=== PATIENT | female | born 1995 | race African-American/Black ===

== ENCOUNTER 2019-12-24 17:41 | Inpatient (IN) ==
[2019-12-24 19:25] LABS: Cocaine Ur Negative (NEGATIVE); Urine Barbiturate Negative (NEGATIVE); Urine Benzodiazepines Negative (NEGATIVE); Urine Opiates Negative (NEGATIVE); Urine PCP Negative (NEGATIVE); Urine THC Negative (NEGATIVE)
[2019-12-24] MEDS ORDERED: RINGER'S SOLUTION,LACTATED 1,000 ML IV PRN (20:45)
[2019-12-24] MEDS ORDERED: ONDANSETRON 4 MG TAB.RAPDIS PO PRN (20:45)
[2019-12-24] MEDS ORDERED: LIDOCAINE HCL 50 ML VIAL PERI PRN (20:45)
[2019-12-24] MEDS ORDERED: OXYTOCIN/DEXTROSE 5%-WATER 30 UNITS/500 ML BAG IV ONE (20:45)
[2019-12-24] MEDS ORDERED: RINGER'S SOLUTION,LACTATED 1,000 ML IV ONE (20:45)
[2019-12-24] MEDS ORDERED: DEXTROSE 5%-LACTATED RINGERS 1,000 ML IV PRN (20:45)
[2019-12-25] MEDS ORDERED: ONDANSETRON HCL/PF 2 MG/ML VIAL IV PRN (01:32)
[2019-12-25] MEDS ORDERED: BUPIVACAINE HCL/0.9 % NACL/PF 250 ML EP PRN (01:32)
[2019-12-25] MEDS ORDERED: NALOXONE HCL 1 MG/1 ML SYRG IV PRN (01:32)
[2019-12-25] MEDS ORDERED: fentaNYL CITRATE/PF 50 MCG/ML AMPUL IT SCH (01:45)
--- NOTE | 2019-12-25 03:21 | ANES ---
Anesthesia Pre Procedure Eval Vitals/Labs: Last Vital Signs Temp 37.1 C 12/24/19 21:00 Pulse 101 H 12/24/19 21:00 Resp 18 12/24/19 21:00 BP 131/79 12/24/19 21:00 Pulse Ox 98 12/24/19 21:00 HOME MEDICATIONS prenat.vits,kathrine,sly-rqmd-[id number] 1 tab PO DAILY 05/19/19 [Last Taken 12/24/19] ferrous sulfate 325 mg (65 mg iron) tablet 325 mg PO BID #30 tab 09/27/19 [Last Taken 12/24/19] aspirin 81 mg tablet,delayed release 81 mg PO DAILY 11/30/19 [Last Taken 12/24/19] valacyclovir 1 gram tablet 1,000 mg PO DAILY #30 tab 11/30/19 [Last Taken 12/24/19] Allergies/Adverse Reactions: Allergies Allergy/AdvReac Type Severity Reaction Status Date / Time No Known Allergies Allergy Verified 12/24/19 17:56 - Planned Procedure Planned Procedure: labor Medication List Reviewed:: Yes Allergies Verified: Yes Medical History (Last Reviewed 12/25/19 @ 03:20 by Ronnell Cowan CRNA) HSV antigen DIF positive (Chronic) History of cervical dysplasia (Chronic) LGSIL 2016, Nml pap 2018 Major depressive disorder, recurrent episode, in partial remission with anxious distress (Acute) Anemia Onset Date: ~04/2016 in high school, with pregnancies HSV-2 (herpes simplex virus 2) infection Onset Date: 05/12/18 Allergic rhinitis Onset Date: Unknown Abnormal Pap smear of cervix Onset Date: 05/12/17 LSIL +HPV Depression Onset Date: Unknown in high school GERD (gastroesophageal reflux disease) Onset Date: Unknown as a child Major depressive disorder, recurrent episode, moderate with anxious distress (Resolved) Mononucleosis Onset Date: ~2011 Pre-eclampsia Onset Date: 11/2015 Premature labor Onset Date: ~10/2015 @ 33 weeks Scoliosis Onset Date: 12/26/09 Sinusitis Onset Date: 08/08/09 Surgical History (Last Reviewed 12/25/19 @ 03:20 by Ronnell Cowan CRNA) [place] teeth extracted Onset Date: ~2011 Family History (Last Reviewed 12/25/19 @ 03:20 by Ronnell Cowan CRNA) Brother Seizures Epilepsy Father Diabetes at age 42 Grandmother Dementia Diabetes Anxiety maternal Depression Mother Arthritis Anxiety Depression PTSD (post-traumatic stress disorder) Borderline personality disorder Cervical cancer Stomach ulcer Sjoegren syndrome Fibromyalgia Chronic fatigue syndrome Neuropathy Migraines Raynauds syndrome Sister Seizures PTSD (post-traumatic stress disorder) Anxiety Depression Bipolar disorder Alcohol abuse - Family Anesthesia History Family History:: no untoward family reactions to anesthesia, no familial bleeding tendencies, no family history of clotting disorders, no family history of premature - Airway/Neck/Teeth Within Normal Limits:: Yes Teeth Condition: intact Neck Exam: full range of motion Mallampatti Score: 2 Thyromental (T-M) distance: > 6 cm Mandibulo Hyoid distance: > 3 cm - Respiratory Respiratory Physical: lungs clear Sleep Apnea currently treated: No Sleep Apnea by current assessment: No - Cardiovascular Tolerate Activity: Fair Heart Sounds: S1 & S2 - Gastrointestinal NPO since: today - Anesthesia Assessment and Plan ASA Class: PS, II, E Anesthesia Type Plan: Epidural - CSE for labor analgesia
--- NOTE | 2019-12-25 03:47 | ANES ---
Post Anesthesia Discharge - Transfer of Care Transfer of Care handoff given to nurse: Yes - Discharge from PACU Discharge from PACU when meets criteria: Yes - Comfortable post CSE
--- NOTE | 2019-12-25 03:50 | ANES ---
Anesthesia Procedure Note Procedure Note: ANESTHESIA PROCEDURE NOTE Date of Procedure: [12/25/2019 Time of procedure: 3:20 AM. Performed by: MARGIE Napoles CRNA, MSN Field Associate: Nella Finn RN. Preprocedure diagnosis: Active labor, labor pain. Post procedure diagnosis: Same. Procedure:Epidural for labor analgesia 3 4. Indications: Labor pain. Findings: See below. Details of the procedure: The patient was placed on the side of the bed in sitting positionand prepped with DuraPrep then draped in a sterile fashion. An obvious right scoliosis was noted on palpation again the landmarks a bit difficult however the patient was quite cooperative. Lidocaine 1% was infiltrated to the skin and subcutaneous tissues at the level of the L3-4 interspace. An 18-gauge Touhy needle was used to approach the epidural space with loss of resistance technique. Once loss of resistance was achieved a 27- gauge spinal needle was passed through the epidural needle and CSF was contacted. After CSF returned, 20 mcg of fentanyl was injected in the spinal needle was removed the epidural catheter was then threaded approximately 4 cm in the epidural needle was removed. The catheter was taped in place and after careful aspiration 3 mL of 1.5% lidocaine with 1-200,000 epinephrine was injected without change in maternal heart rate or sensorium. . EBL: Minimal. Fluids: N/A. Specimen: N/A. Post procedure condition: The patient tolerated the procedure well with good relief. No complications were noted. Thank you for this consultation. Ronnell Cowan CRNA, ARNP, MSN
--- NOTE | 2019-12-25 03:56 | ANES ---
Post Anesthesia Assessment - Vital Signs Vitals: Last Vital Signs Temp 37.1 C 12/24/19 21:00 Pulse 101 H 12/24/19 21:00 Resp 18 12/24/19 21:00 BP 131/79 12/24/19 21:00 Pulse Ox 98 12/24/19 21:00 Airway Patency: Normal - Mental Status Level Of Consciousness: Awake, Alert, Appropriate - Pain Level Pain Score: 0 - N/V Assessment Nausea/Vomiting Presence: None Dehydration:: No
--- NOTE | 2019-12-25 06:44 | HP ---
Chief Complaint - Chief Complaint Date of Service: 12/25/19 Time of Service: 06:28 Chief Complaint: painful contractions History of Present Illness: 24 yo admitted on 12/24/19 at 39 0/7 weeks for labor. This complicated by anemia, HSV carrier, h/o depression, h/o labor, and h/o preeclampsia. Rh positive Rubella immune GBS negative Medical History (Last Reviewed 12/25/19 @ 06:32 by Dominick Seals DO) HSV antigen DIF positive (Chronic) History of cervical dysplasia (Chronic) LGSIL 2016, Nml pap 2018 Major depressive disorder, recurrent episode, in partial remission with anxious distress (Acute) Anemia Onset Date: ~04/2016 in high school, with pregnancies HSV-2 (herpes simplex virus 2) infection Onset Date: 05/12/18 Allergic rhinitis Onset Date: Unknown Abnormal Pap smear of cervix Onset Date: 05/12/17 LSIL +HPV Depression Onset Date: Unknown in high school GERD (gastroesophageal reflux disease) Onset Date: Unknown as a child Major depressive disorder, recurrent episode, moderate with anxious distress (Resolved) Mononucleosis Onset Date: ~2011 Pre-eclampsia Onset Date: 11/2015 Premature labor Onset Date: ~10/2015 @ 33 weeks Scoliosis Onset Date: 12/26/09 Sinusitis Onset Date: 08/08/09 Surgical History: Surgical History (Last Reviewed 12/25/19 @ 06:32 by Dominick Seals DO) [place] teeth extracted Onset Date: ~2011 Family History: Family History (Last Reviewed 12/25/19 @ 06:32 by Dominick Seals DO) Brother Seizures Epilepsy Father Diabetes at age 42 Grandmother Dementia Diabetes Anxiety maternal Depression Mother Arthritis Anxiety Depression PTSD (post-traumatic stress disorder) Borderline personality disorder Cervical cancer Stomach ulcer Sjoegren syndrome Fibromyalgia Chronic fatigue syndrome Neuropathy Migraines Raynauds syndrome Sister Seizures PTSD (post-traumatic stress disorder) Anxiety Depression Bipolar disorder Alcohol abuse Social History: (Last Reviewed 12/25/19 @ 06:33 by Dominick Seals DO) Social History: Marital status: Single current occupational status: employed current occupation: hotel maintenance technician Highest education level completed: high school graduate Service: No Tobacco: how long ago did patient quit smoking: what positive UPT 04/2019 Alcohol: alcohol intake: current alcohol intake frequency: a few times a week details: none with Substance Use: substance use type: does not use Dietary Habits: caffeine: Yes caffeine comment: 1-week Exercise: Physical activity type: none Review Of Systems (GEN) - Review of Systems Generalized/Overall Review: Present: No Symptoms Reported EENTM: Present: No Symptoms Reported Respiratory: Present: No Symptoms Reported Cardiac: Present: No Symptoms Reported Abdominal: Present: No Symptoms Reported Genitourinary: Present: No Symptoms Reported Musculoskeletal: Present: No Symptoms Reported Neurological: Present: No Symptoms Reported Skin: Present: No Symptoms Reported Endocrine: Present: No Symptoms Reported Immunizations: IMMUNIZATION HX Immunizations Up to Date Yes History of Influenza Vaccine No Hx Pneumococcal Vaccination No Allergies/Adverse Reactions: Allergies Allergy/AdvReac Type Severity Reaction Status Date / Time No Known Allergies Allergy Verified 12/24/19 17:56 Home Medications: HOME MEDICATIONS prenat.vits,kathrine,egs-gtrl-jorvg 1 tab PO DAILY 05/19/19 [Last Taken 12/24/19] ferrous sulfate 325 mg (65 mg iron) tablet 325 mg PO BID #30 tab 09/27/19 [Last Taken 12/24/19] aspirin 81 mg tablet,delayed release 81 mg PO DAILY 11/30/19 [Last Taken 12/24/19] valacyclovir 1 gram tablet 1,000 mg PO DAILY #30 tab 11/30/19 [Last Taken 12/24/19] Exam - Exam Vital Signs: Vital Signs - Last Taken Temp 37.1 C 12/24/19 21:00 Pulse 101 H 12/24/19 21:00 Resp 18 12/24/19 21:00 BP 131/79 12/24/19 21:00 Pulse Ox 98 12/24/19 21:00 Constitutional: Present: Alert, Oriented x3, Cooperative, Moderate distress - due to contractions ENT Exam: Present: hearing grossly normal Breasts: Present: Exam deferred Respiratory: Present: lungs clear, no respiratory distress Cardiovascular/Chest: Present: regular rate, rhythm, no edema Abdomen: Present: soft, nontender, no rebound tenderness, other - gravid /Rectal: Present: Other - 4/70/-2 Extremity: Present: no pedal edema, no calf tenderness Skin Exam: Present: normal color, warm/dry, no cyanosis Neurologic: Present: alert, normal mood/affect Appearance: Present: appropriate appearance, appropriate insight Eye contact: Present: cooperative, good eye contact Thoughts: Present: normal thought pattern, normal mood /affect Diagnostic Studies: Laboratory Results Urine Opiates Screen Negative (NEGATIVE) 12/24/19 18:49 Barbiturate Screen Negative (NEGATIVE) 12/24/19 18:49 Ur Phencyclidine Scrn Negative (NEGATIVE) 12/24/19 18:49 Urine Amphetamine Negative (NEGATIVE) 12/24/19 18:49 U Benzodiazepines Scrn Negative (NEGATIVE) 12/24/19 18:49 Urine Cocaine Screen Negative (NEGATIVE) 12/24/19 18:49 Urine Marijuana (THC) Negative (NEGATIVE) 12/24/19 18:49 Assessment/Plan - Assessment/Plan (1) Labor established Assessment: Admit for routine management of labor. Epidural and pitocin PRN. Problem: Acute (2) History of pre-eclampsia Problem: Chronic (3) History of labor Problem: Chronic (4) Anemia Problem: Chronic Qualifiers: Anemia type: iron deficiency Iron deficiency anemia type: inadequate dietary iron intake Qualified Code(s): D50.8 - Other iron deficiency anemias (5) HSV antigen DIF positive Problem: Chronic (6) Major depressive disorder, recurrent episode, in partial remission with anxious distress Problem: Acute
--- NOTE | 2019-12-25 06:46 | OR ---
Operative Report - Dictated Report Narrative: Spontaneous vaginal delivery of vigorously crying viable male at 0606 on 12/25/2019 with Apgars of 9 and 9, weighing 3060 g and GLADIS position. Cord clamping delayed approximately 1 minute Placenta delivered complete, intact, with three vessel cord Estimated blood loss: Less than 50 ml Anesthesia: Epidural Lacerations: None History for MU History for Definition: * The number of deliveries resulting in a live the patient experienced prior to current hospitalization * The previous delivery of live twins or any live multiple gestation is considered one live event. *If primagravida or nulliparous is documented select zero for the number of previous live births. Live Events: Live Events: 2
[2019-12-25] MEDS ORDERED: GLYCERIN/WITCH HAZEL LEAF 40 APPL BOX TP PRN (08:03)
[2019-12-25] MEDS ORDERED: SENNOSIDES 8.6 MG TABLET PO PRN (08:03)
[2019-12-25] MEDS ORDERED: HYDROCORTISONE 30 APPL TUBE TP PRN (08:03)
[2019-12-25] MEDS ORDERED: BISACODYL 10 MG SUPP.RECT RC PRN (08:03)
[2019-12-25] MEDS ORDERED: BENZOCAINE/MENTHOL 81 SPRAY CAN TP PRN (08:03)
[2019-12-25] MEDS ORDERED: OXYTOCIN/DEXTROSE 5%-WATER 30 UNITS/500 ML BAG IV ONE (08:03)
[2019-12-25] MEDS: DOCUSATE SODIUM 100 MG CAPSULE PO SCH ×2 (08:28→23:03)
[2019-12-25] MEDS: oxyCODONE HCL/ACETAMINOPHEN 1 TAB TABLET PO PRN ×3 (08:28→23:03)
[2019-12-25] MEDS: IBUPROFEN 800 MG TABLET PO PRN ×3 (08:28→23:03)
[2019-12-26] MEDS: IBUPROFEN 800 MG TABLET PO PRN (06:08)
[2019-12-26] MEDS: oxyCODONE HCL/ACETAMINOPHEN 1 TAB TABLET PO PRN (06:09)
[2019-12-26 07:09] VITALS: BP 116/67
--- NOTE | 2019-12-26 10:14 | PN ---
Subjective - Date and Time Seen Date: 12/26/19 Time: 10:13 Objective - Vitals Vitals: Last Vital Signs Temp 36.4 C 12/26/19 07:08 Pulse 85 12/26/19 07:08 Resp 18 12/26/19 07:08 BP 116/67 12/26/19 07:08 Pulse Ox 98 12/26/19 07:08 Patient denies complaints. Bottlefeeding Lochia wnl abdomen - soft, nontender Uterus -firm, at umbilicus - 1 no calf tenderness Impression: day #1 - s/p spontaneous vaginal delivery. Desires early discharge Plan: Continue routine care. Routine discharge instructions given. Follow-up in 3 weeks . Cauti Physician Documentation - Urinary Catheter Management Urethral ([place]) Date of Insertion: 12/25/19 Time of Insertion: 04:00 Date of Removal: 12/25/19 Time of Removal: 06:00 Assessment/Plan - Problems/Diagnosis (1) Labor established Problem: Acute (2) History of pre-eclampsia Problem: Chronic (3) History of labor Problem: Chronic (4) Anemia Problem: Chronic Qualifiers: Anemia type: iron deficiency Iron deficiency anemia type: inadequate dietary iron intake Qualified Code(s): D50.8 - Other iron deficiency anemias (5) HSV antigen DIF positive Problem: Chronic (6) Major depressive disorder, recurrent episode, in partial remission with anxious distress Problem: Acute
[2019-12-26] MEDS: DOCUSATE SODIUM 100 MG CAPSULE PO SCH (10:24)
== END 2019-12-26 13:10 | disposition home or self-care (01) | DRG 998 ==
LOC: OBCLINIC 17:41 → OB 20:22
PROVIDERS: ADMIT Obstetrics & Gynecology; ATTEND Obstetrics & Gynecology
CPT/HCPCS: 59025; 80307